=== PATIENT | female | born 1960 | race Two or more races ===

== ENCOUNTER 2024-01-07 07:07 | Outpatient (CLI) | payer BC, SELFPAY | END 2024-01-07 07:08 | disposition home or self-care (01) | LOC: INJ CL 07:10 | PROVIDERS: PCP Family Medicine; Visit Provider Family Medicine | DX: M54.16 Radiculopathy, lumbar region (principal); M51.36 Other intervertebral disc degeneration, lumbar region | CPT/HCPCS: 64483; J1100; Q9966 ==